=== PATIENT | female | born 1985 | race Caucasian/White ===

== ENCOUNTER 2024-05-08 08:21 | Outpatient (CLI) | payer BC, SELFPAY | END 2024-05-08 08:22 | disposition home or self-care (01) | LOC: NFLDREF 05-09 08:42 | PROVIDERS: PCP Physician Assistant Medical; Visit Provider Physician Assistant Medical | DX: Z13.228 Encounter for screening for other metabolic disorders (principal); Z13.220 Encounter for screening for lipoid disorders; Z13.29 Encounter for screening for other suspected endocrine disorder | CPT/HCPCS: 80053; 80061; 84443 ==

== ENCOUNTER 2024-08-19 14:31 | Outpatient (CLI) | payer BC, SELFPAY ==
--- OUTSIDE RECORDS SUMMARY | 2024-08-15 15:26 | XMS_ITS | Data Portability ---
Author Organization LIBIA Garcia LEAD QUALITY TECHNICIAN, [id number] Address [address] [place] [address] Assessment Encounter Date Assessment Date Assessment LastModified by Organization Details LastModified Time 06/02/2020 06/02/2020 I discussed risks of surgery to include but not be limited to bleeding, infection, injury to bowel, bladder, vessels, ureters and other structures. We reviewed the risks of thromboembolic events and anesthesia risks. I reviewed the risk of tissue extraction in a contained bag and the small but possible risk of seeding an occult cancer if tissue isn't contained and contains malignant tissue. This risk was compared to the risk of conversion to laparotomy and the benefit of recovery with laparoscopic route outweighs laparotomy. I discussed recovery, time off from work, and all restrictions. We reviewed the pros and cons of keeping the ovaries and cervix. All questions answered to the patient s verbalized understanding. She wants to move forward with hysterectomy. [email or web address] Not available 06/02/2020 09:40:09 Plan of Treatment Reminders Order Date Submit Date Provider Last Modified By Organization Details Last Modified Time Details Appointments None recorded. Lab hemoglobin (Hb), fingerstick , blood 2019 020 [email or web address] [id number] [facility] , [address] [place] [address], [address], [address], 0 09:19:01 hemoglobin (Hb), fingerstick , blood 2019 020 [email or web address] [id number] [facility] , [address] [place] [address], [address], [address], 0 13:13:11 Referral None recorded. Procedures None recorded. Surgeries None recorded. Imaging US, pelvis, complete 2019 020 IVETTE vee, [address], [address], [place], [address], 0 12:40:39 Medication Orders escitalopra m 20 mg tablet 2022 023 IVETTE [facility] [id number] [employer], [address] [facility], [place], [address], 3 18:32:19 Patient TargetsNo targets recorded. Patient Instructions Encounter Date Encounter Id Patient Instructions Last Modified By Organization Details Last Modified Time 06/02/2020 [id number] [email or web address] Not available 06/02 09:42:09 Reason for Referral None Reported. Results Created Date Observation Date Name Description Value Unit Range Abnormal Flag Note LastModifiedBy Organization Detail LastModifiedTime 07/07/2020 hemog lobin (Hb), finge rstic k, blood fingerstick hemoglobin 10.1 g/dL 12.0-1 5.0 Not Available [id number], [address], 07/07/2020 12:16:49 06/02/2020 hemog lobin (Hb), finge rstic k, blood fingerstick hemoglobin 11.8 g/dL 12.0-1 5.0 Not Available [id number], [address], 06/02/2020 08:21:27 05/19/2020 hemog lobin (Hb), finge rstic k, blood fingerstick hemoglobin 10.8 g/dL 12.0-1 5.0 Not Available [address], [address], 05/19/2020 15:03:19 05/21/20 20 US, pelvi s, compl ete No observ ation record ed. [email or web address] [address], [place], [address], 05/22/2020 11:36:43 Result Notes None recorded. Problems No Known Problems Procedures Surgical History Date Name Laterality Status Provider Name and Address Organization Details Recorded Time 06/25/20 20 Total [place] [address] [facility],[address], [place], [address], [place] [facility] LEAD QUALITY TECHNICIAN 07/14/2020 12:55:46 11/15/19 19 removal of intrauterine device completed Kassi Giovanny [facility] LEAD QUALITY TECHNICIAN 05/19/2020 09:47:00 11/10/19 19 Date of Last Pap Smear completed Kassi Baltazar [facility] LEAD QUALITY TECHNICIAN 05/19/2020 09:40:31 08/31/19 16 Breast Implants completed Stefany Carlos (TERMED) [facility] LEAD QUALITY TECHNICIAN 04/14/2023 14:31:39 06/20/20 14 Insert intrauterine device completed Not Available [facility] 03/30/2020 01:04:46 tooth extraction completed Stefany Carlos (TERMED) [facility] LEAD QUALITY TECHNICIAN 04/14/2023 14:31:39 augmentation of breast with immediate insertion of breast prosthesis completed Stefany Carlos (TERMED) [facility] LEAD QUALITY TECHNICIAN 04/14/2023 14:31:39 Imaging Results Imaging Date Name Status LastModified by Organiz ation Details LastModified Time 05/21/2020 US, pelvis, complete completed [email or web address] [address], [place], [address], 05/22/2020 11:36:43 Procedure Notes None recorded. Medical Equipment None Reported. Allergies Allergen ID Allergen Name Allergen Category Reaction Reaction Severity Criticality Documentation Date Start Date Code Code System Note Provider Name and Address Organization Details Recorded Time 543126 erythromy flaco medicatio n Not available Not available Not available 03/27/2020 4053 RxNorm *Onse t: 6 *Note : 09/17 Not Available [facility] 0 16:58:34 224560 Medicinal product containin g penicilli n and acting as antibacte rial agent (product) medicatio n Not available Not available Not available 03/27/2020 64825 05 SNOMED *Onse t: 6 *Note : 09/17 - Not Available [facility] 0 16:58:34 Medications Name Sig Start Date Stop Date Status Note LastModified by Organization Details LastModified Time prednisone 10 mg tablet PLEASE SEE ATTACHED FOR DETAILED DIRECTION S 01/18 completed Not Available Not Available Not Available sulfamethox azole 800 mg-trimetho prim 160 mg tablet TAKE 1 TABLET BY MOUTH TWICE A DAY FOR 3 DAYS active Not Available Not Available No t Available cefdinir 300 mg capsule TAKE 1 CAPSULE (300 MG) BY MOUTH 2 TIMES DAILY FOR 7 DAYS 01/18 completed Not Available Not Available Not Available fluticasone propionate 50 mcg/actuati on nasal spray,suspe nsion INSTILL 1 SPRAY INTO BOTH NOSTRILS DAILY active Not Available Not Available No t Available doxycycline hyclate 100 mg tablet TAKE 1 TABLET BY MOUTH 2 TIMES DAILY FOR 7 DAYS active Not Available Not Available No t Available oxycodone 5 mg tablet 01/18 completed Not Available Not Available Not Available escitalopra m 10 mg tablet TAKE 1 TABLET BY MOUTH EVERY DAY active Not Available Not Available No t Available escitalopra m 20 mg tablet Take 1 tablet every day by oral route for 90 days. active Not Available Not Available No t Available Sprintec (28) 0.25 mg-35 mcg tablet Take 1 tablet every day by oral route. 01/18 completed Not Available Not Available Not Available cyclobenzap rine 5 mg tablet TAKE 1 TABLET BY MOUTH THREE TIMES A DAY 02/08 completed Not Available Not Available Not Available Flucelvax Quad (PF) 60 mcg (15 mcg x 4)/0.5 mL IM syringe 01/18 completed Not Available Not Available Not Available Vitals Date Recorded Body height Body mass index (BMI) Body weight Systolic blood pressure Diastolic blood pressure Provider Name and Address Organization Details Last Updated DateTime 02/08/2022 165.2 cm 23.3 kg/m2 80780.37 g 116 mm[Hg] 74 mm[Hg] Peter Watts (TERMED) [facility] LEAD QUALITY TECHNICIAN 2 16:54:26 Date Recorded Body weight Body mass index (BMI) Body height Systolic blood pressure Diastolic blood pressure Provider Name and Address Organization Details Last Updated DateTime 04/14/2023 90528.42 g 24.9 kg/m2 165.1 cm 124 mm[Hg] 70 mm[Hg] Stefany Breanna (TERMED) [facility] LEAD QUALITY TECHNICIAN 3 14:46:32 Date Recorded Body height Body mass index (BMI) Body weight Systolic blood pressure Diastolic blood pressure Provider Name and Address Organization Details Last Updated DateTime 05/21/2020 165.2016 cm 22.5 kg/m2 55508.41 g 136 mm[Hg] 82 mm[Hg] Peter Watts (TERMED) [facility] LEAD QUALITY TECHNICIAN 0 12:37:25 Date Recorded Body height Body mass index (BMI) Body weight Systolic blood pressure Diastolic blood pressure Provider Name and Address Organization Details Last Updated DateTime 06/02/2020 165.2016 cm 22.5 kg/m2 08223.69 g 100 mm[Hg] 72 mm[Hg] Kassi Baltazar [facility] LEAD QUALITY TECHNICIAN 0 08:21:14 Date Recorded Body height Body mass index (BMI) Body weight Systolic blood pressure Diastolic blood pressure Provider Name and Address Organization Details Last Updated DateTime 07/07/2020 165.2016 cm 21.8 kg/m2 08067.04 g 112 mm[Hg] 76 mm[Hg] Kassi Baltazar [facility] LEAD QUALITY TECHNICIAN 0 12:16:35 Social History Question Answer Notes LastModified by Organizat ion Details LastModified Time Tobacco Smoking Status Never Smoker Not Available [facility] 03/30/2020 13:23:56 Do You Have An Advance Directive? No Information not available 04/14/2023 What Is Your Level Of Alcohol Consumption? Moderate Information not available 04/14/2023 What Is Your Level Of Caffeine Consumption? Moderate 2c/day Information not available 04/14/2023 Which Illicit Or Recreational Drugs Have You Used? 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 Information not available 01/18/2022 Do You Use Any Illicit Or Recreational Drugs? No Information not available 01/18/2022 Sex: Unknown Functional Status Question Answer Note LastModified by Organization D etails LastModified Time What is your exercise level? Moderate Information not available 04/14/2023 Mental Status None recorded. Family History Relationship Description Onset Age of this Age Resolved Age Notes LastModified by Organization Details LastModified Time Father Hyperlipidem ia High Choles terol / Hyperl ipidem ia efrisinger Not available 04/14/2023 14:31:25 Father Hypercholest erolemia 55 efrisinger Not available 04/14 14:31:25 Maternal Grandfather Old myocardial infarction Heart Attack efrisinger Not available 04/14/2023 14:31:25 Maternal Grandfather Family history of stroke Stroke efrisinger Not available 04/14 14:31:25 Mother Osteoporosis 60 efrisinger Not andrea ilable 04/14/2023 14:31:25 Medical History Condition Response Ortho-Other Y Gynecological History Statement/Question Response History of Abnormal PAP N History of Recurrent Ovarian Cysts N Date of LMP 05/14/2020 0 12 Age at Menarche: 10 0 History of Sexually Transmitted Infectio n N Y Diethylstilbestrol (COOPER) exp osed daughters of women who took COOPER during ? N Current Control Method Hysterectom y Urinary Incontinence Symptoms Y Date of Last Pap Smear 11/09/2018 Obstetrics History GPAL:G 5 P 3 0 2 3 Type Value Multiple Births 0 Full Term 3 Induced 0 Spontaneous 2 Premature 0 Living 3 Ectopics 0 Total 5 Immunizations Vaccine Type Date Status Note Provider Nam e and Address Organization Details Recorded Time ap 3 completed Not Available [facility] 03/30/2020 01:07:47 Influenza, split virus, trivalent, preservative 1 completed Not Available [facility] 03/30/2020 01:07:47 Influenza, split virus, trivalent, preservative 3 completed Not Available [facility] 03/30/2020 01:07:47 unknown 1 completed Not Available [facility] 03/30/2020 01:07:48 unknown 0 completed Not Available [facility] 03/30/2020 01:07:48 unknown 9 completed Not Available [facility] 03/30/2020 01:07:48 Past Encounters Encounter ID Performer Location Encounter Start Date Encounter Closed Date Diagnosis/Indication Diagnosis SNOMED-CT Code Diagnosis ICD10 Code [id number] HARITHA PHELPS MD [id number] [place]_[address] ,[facility] [address] [place] [address] 05/19/2020 14:54:20 05/19/2020 15:51:55 Gynecologic examination 78530277 Z01.419 Anxiety 58667286 F41.9 Menorrhagia 340525490 N9 2.0 Iron defic iency anemia 33815811 D50.9 [id number] MD MADISON GUERRERO_SOU [place]_[address] [place] [address] 05/21/2020 11:47:20 05/21/2020 12:34:44 Abnormal uterine bleeding 7856895562 9100 N93.9 [id number] MD MARGARETTE GUERRERO004_SOU [place]_[address] ,[facility] [address] [place] [address] 05/21/2020 12:34:18 05/21/2020 13:08:57 Menorrhagia 446392275 N92.0 Intramural leiomyoma of uterus 42284328 D25.1 [id number] MD MARGARETTE GUERRERO004[address] [address] [place] [address] 06/02/2020 08:16:35 06/02/2020 09:52:35 Pre-surgery testing 681530046 Z01.89 [id number] HARITHA PHELPS MD [id number] [place]_[facility] [address] ,[address] [place] [address] 07/07/2020 12:03:52 07/07/2020 12:36:25 Postoperative visit 006835407 Z09 [id number] HARITHA PHELPS MD [id number] [place]_[facility] [address] ,[address] [place] [address] 02/08/2022 16:43:56 02/08/2022 17:24:51 Gynecologic examination 57088082 Z01.699 [id number] HARITHA PHELPS MD [id number] [place]_ED [address] [place] [address] 04/14/2023 14:27:56 04/18/2023 14:49:02 Gynecologic examination 27092052 Z01.419 Mixed anxi ety and depressive disorder 219949336 F41.8 Health Concerns Section Related Observation LastModified by Organization Detai ls LastModified Time None Recorded Concern Status LastModified by Organization Details LastModified Time None Recorded Advance Directives Directive N: Payers Encounter Date Sequence Insurance Name Policy Number Policy Rayo Covered Member ID Rayo Member ID Guarantor Name 05/21/2020 1 [employer] [employer] 112 hTa Gerber [id number] Ana Gerber 06/02/2020 1 [place] [employer] [place] 112 Tha Gerber [id number] Ana Gerber 07/07/2020 1 [place] [employer] [place] 112 Tha Gerber [id number] Ana Gerber 02/08/2022 1 [place] [employer] [place] 112 Tha Gerber [id number] Ana Gerber 04/14/2023 1 [place] [employer] [place] 112 Tha Gerber [id number] Ana Gerber Notes Date Note Type Note Provider Name and Address Organization Details Recorded Time 05/21/2020 text/html Pt here today fo r f/u after pelvic US to recheck fibroid. Was here for Px 2 days ago, heavy menses (up to 11 days) and new-onset anemia despite daily iron - symptomatic. Cycles are regular but very heavy. Last US in early 2018 showed a 5.1cm fibroid. US reviewed today. A large central fibroid (6.8 x 8.8cm) is noted. EMS is normal, fluid in the canal. normal [place] [address] [facility],[address], [place], [address], [place] [facility] LEAD QUALITY TECHNICIAN 05/21/2020 14:30:58 06/02/2020 text/html Pre-Op ([facility])Reported bypatient.Procedure:To sabi laparoscopic hysterectomy, bilateral salpingectomy, cystoscopy Procedure Date:06/25/20 Surgeon:Rubio Procedure Location:[facility] Reason for Procedure:AUB, Fibroids Past Medical History significant for:asthma: no; CAD: no; renal insufficiency: no; diabetes: no; congestive heart failure: no; recent MS: no; valvular heart disease: no; sleep apnea: no Bleeding Risk: History of:bleeding or easy bruising: no; bleeding into joints or muscles: no; frequent nosebleeds: no; heavy menstrual bleeding: yes (fibroids) History of bleeding after:loss of teeth or dental extractions: no; previous surgery: no; previous injury: no Is the patient currently taking:antihistamines: no; aspirin or ibuprofen products: no; blood thinners: no; Metformin: no; seizure medication: no Anesthetic risk:difficulty waking up from anesthesia: no; excessive post op nausea and vomiting: no; sensitivity to narcotics: no; sensitivity to anesthesia: no Family History of:blood transfusion: no; a blood or bleeding disorder: no; malignant hyperthermia: no; adverse reactions to anesthesia: no The patient has failed the following medical management options:IUD, OCP'sNotes: Has heavy menses (up to 11 days) and new-onset anemia despite daily iron - symptomatic. Cycles are regular but very heavy. Last US in 2018 showed a 5.1cm fibroid. Repeat US 05/21 shows a large central fibroid (6.8 x 8.8cm). EMS is normal, fluid in the canal. normal appearing ovaries. Patient desires definitive [place] [address], [place], [address], [facility] [[email or web address] - [facility] LEAD QUALITY TECHNICIAN 06/02/2020 09:42:20 07/07/2020 text/html Underwent total laparoscopic hysterectomy, bilateral salpingectomy and cysto on 06/25/20 for fibroids and menorrhagia. Overall feels great after surgery. Not needing any pain meds. No N/V. No constipation. Hgb 10.1, no s/sx anemia. Reviewed pathology results, benign fibroid. Spot of endometriosis noted intraop, [place] without [place] [address], [place], [address], [facility] [[email or web address] - [facility] LEAD QUALITY TECHNICIAN 07/14/2020 12:56:23 02/08/2022 text/html Annual Premenopa usal ([facility])Reported bypatient.Patient Relationship To Practice:established patient Current Medical History:no active medical problems; no recent surgeries or hospitalizations Relevant Family History:no family history of breast cancer; no family history of ovarian cancer; no family history of uterine cancer; no family history of colon cancer; no family history of blood clots/DVT Menstrual History:hysterectomy Contraceptive Method:satisfied: hysterectomy Sexually Active:Yes: spouse STI Screen:declines Health/Prevention:Exer cise: yes; Multivitamins: yes; Seat Belt Use: yes; Tobacco Use: no; Urinary Incontinence: no Mammogram:not applicable Pap Smear +/- HPV Cotesting:up-to-date; No further paps needed, s/p TLH Thyroid/Lipid Screening:due Patient has:Primary Care Physician: yesNotes:Hyst 06/2020, very happy with decision. No issuesKids in elementary - very active in sports. 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 [address], [place], [address], [place] - [facility] LEAD QUALITY TECHNICIAN 02/08/2022 17:23:29 04/14/2023 text/html Annual Premenopa usal ([facility])Reported bypatient.Patient Relationship To Practice:established patient Current Medical History:no active medical problems; no recent surgeries or hospitalizations Relevant Family History:no family history of breast cancer; no family history of ovarian cancer; no family history of uterine cancer; no family history of colon cancer; no family history of blood clots/DVT Menstrual History:hysterectomy Contraceptive Method:satisfied: hysterectomy Sexually Active:Yes: spouse STI Screen:declines Health/Prevention:Exer cise: yes; Multivitamins: yes; Seat Belt Use: yes; Tobacco Use: no; Urinary Incontinence: no Mammogram:due; April Pap Smear +/- HPV Cotesting:up-to-date; No further paps needed, s/p TLH Thyroid/Lipid Screening:due Patient has:Primary Care Physician: yesNotes:Hyst 06/2020, no issuesKids in elementary & middle - very active in sports.Primary concern is worsening irritability, interested in increasing dose [place] [address] [facility],[address], [place], [address], [place] - [employer] LEAD QUALITY TECHNICIAN 04/17/2023 12:15:27 OBGyn Episode Ob Episode Information Episode Created Date Number of Fetuses Patient Bloodtype Patient rh Status Prepregnancy Weight lbs Domestic Partner Domestic Partner Phone Father Name Senior User Experience Architect Status 05/19/20 20 1 CLOSED Fetus Data First Name Last Name Admitted to NICU Weight (g) Sex Living Outcome Pediatric Complications Fetus ID Race Codes Race Delivery Type 3175.14 4 F Full Term [id number] Neema Calculation NEEMA Calculation Method Initial Neema Date Initial Exam Date Initial Exam Provider Initial Ultrasound Date Last Menstrual Period Date Ultra Sound Weeks Gestation Conception by IVF Embryo Age at Transfer Date of Transfer 0 Eighteen To Twenty Week Neema Update Ultra Sound Date Fundal Height At Umbil Quickening Date Ultra Sound Latest Weeks Gestation Final Neema Confirmed By Final Neema Confirmed Date Final Neema Date Ultra Sound Latest Days Gestation 0 0 Menstrual History Last Menstrual Date Menses Monthly On Bcp Conception Prior Menses Frequency Hcg Plus Date Menarche Onset Age Delivery Information Delivery Date Delivery Type Labor Anesthesia Weeks Gestation Incision Type Labor Labor Length Hrs Delivered By Post Complications Tubal Sterilization Discharge Date Comments 0 Regional-Ep idural 38 shoulder dystocia -Dr Borjas Discharge Information Feeding Method Contraceptive Method Maternal HG B and HCT Levels Ob Episode Information Episode Created Date Number of Fetuses Patient Bloodtype Patient rh Status Prepregnancy Weight lbs Domestic Partner Domestic Partner Phone Father Name Senior User Experience Architect Status 05/19/20 20 1 CLOSED Fetus Data First Name Last Name Admitted to NICU Weight (g) Sex Living Outcome Pediatric Complications Fetus ID Race Codes Race Delivery Type 2579.57 7704 M Full Term [id number] Neema Calculation NEEMA Calculation Method Initial Neema Date Initial Exam Date Initial Exam Provider Initial Ultrasound Date Last Menstrual Period Date Ultra Sound Weeks Gestation Conception by IVF Embryo Age at Transfer Date of Transfer 0 Eighteen To Twenty Week Neema Update Ultra Sound Date Fundal Height At Umbil Quickening Date Ultra Sound Latest Weeks Gestation Final Neema Confirmed By Final Neema Confirmed Date Final Neema Date Ultra Sound Latest Days Gestation 0 0 Menstrual History Last Menstrual Date Menses Monthly On Bcp Conception Prior Menses Frequency Hcg Plus Date Menarche Onset Age Delivery Information Delivery Date Delivery Type Labor Anesthesia Weeks Gestation Incision Type Labor Labor Length Hrs Delivered By Post Complications Tubal Sterilization Discharge Date Comments [address] Gregory rouse Discharge Information Feeding Method Contraceptive Method Maternal HG B and HCT Levels Ob Episode Information Episode Created Date Number of Fetuses Patient Bloodtype Patient rh Status Prepregnancy Weight lbs Domestic Partner Domestic Partner Phone Father Name Senior User Experience Architect Status 05/19/20 20 1 CLOSED Fetus Data First Name Last Name Admitted to NICU Weight (g) Sex Living Outcome Pediatric Complications Fetus ID Race Codes Race Delivery Type 3316.66 4704 M Full Term [id number] Neema Calculation NEEMA Calculation Method Initial Neema Date Initial Exam Date Initial Exam Provider Initial Ultrasound Date Last Menstrual Period Date Ultra Sound Weeks Gestation Conception by IVF Embryo Age at Transfer Date of Transfer 0 Eighteen To Twenty Week Neema Update Ultra Sound Date Fundal Height At Umbil Quickening Date Ultra Sound Latest Weeks Gestation Final Neema Confirmed By Final Neema Confirmed Date Final Neema Date Ultra Sound Latest Days Gestation 0 0 Menstrual History Last Menstrual Date Menses Monthly On Bcp Conception Prior Menses Frequency Hcg Plus Date Menarche Onset Age Delivery Information Delivery Date Delivery Type Labor Anesthesia Weeks Gestation Incision Type Labor Labor Length Hrs Delivered By Post Complications Tubal Sterilization Discharge Date Comments 2 Regional-Ep idural 39 Dr Gregory rouse Discharge Information Feeding Method Contraceptive Method Maternal HG B and HCT Levels
--- NOTE | 2024-08-19 14:40 | CRLHL7_ITS ---
For Patients: As a result of the Century Cures Act, medical imaging exams and procedure reports are released immediately into your electronic medical record. You may view this report before your referring provider. If you have questions, please contact your health care provider. BILATERAL SCREENING MAMMOGRAM WITH COMPUTER-AIDED DETECTION AND TOMOSYNTHESIS TECHNIQUE: CC, MLO and Implant displaced views were obtained. These mammographic images have been obtained using full-field digital technique. These mammographic images were interpreted with the benefit of computer-aided detection. Breast Tomosynthesis was used in this interpretation. COMPARISON FILM: Baseline. FINDINGS: The breasts are almost entirely fatty IMPRESSION: There is no radiographic evidence for malignancy. ASSESSMENT: BI-RADS Category 2: Benign RECOMMENDATION: Routine screening mammogram in 1 year. A lay language report of this examination will be provided to the patient. Jose Dos Santos M.D. Diagnostic Radiologist [email or web address] [place] / bM/Dictated by: Jose Dos Santos MD @ 08/20/2024 9:32:00 AM (Electronically Signed)
== END 2024-08-19 14:32 | disposition home or self-care (01) ==
PROVIDERS: PCP Physician Assistant Medical; Visit Provider Physician Assistant Medical
DX: Z12.31 Encounter for screening mammogram for malignant neoplasm of breast (principal)
CPT/HCPCS: 77063; 77067